=== PATIENT | male | born 1955 | race Caucasian/White ===

== ENCOUNTER 2018-09-27 05:57 | Inpatient (IN) | payer OTHER ==
[~2018-09-27] VITALS: Ht 172.7 cm; Wt 83.9 kg
[2018-09-27] VITALS (10 sets, daily range): BP systolic 140–210; BP diastolic 74–181
--- NOTE | ~2018-09-27 | PR ---
[place], [place] PROGRESS NOTE NAME: CASEY HENRIQUEZ UNIT #: [id number] ROOM: 515 DOCTOR: ALFONZO AUGUSTE MD,SOURAV BIRTHDATE: [birth year] DOS: 09/29/2018 PULMONARY PROGRESS NOTE SUBJECTIVE: The patient has been reported reduction of the respiratory symptoms. Cough has been noted mild at this time without any sputum expectoration. Denies symptoms of chest pain, shortness of breath definitely was decreased. Denies symptoms of hemoptysis or chest pain. There was no edema or pain of the lower extremity. Denies symptoms of headache, diplopia, nausea, vomiting, or diarrhea. The patient had stress testing completed yesterday. Heart rate for the patient has been currently noted with a controlled range between 70-85. Remaining systems were reviewed, they were noted all negative. OBJECTIVE: VITAL SIGNS: Normal temperature, respiratory rate 18, heart rate 70-54, blood pressure 144/62-142/74. The pulse oxygen saturation was recorded on room air 98% saturation. HEENT: Chronic obesity. NECK: Supple. CARDIOVASCULAR: S1, S2 audible. LUNGS: Noted [id number] decreased breath sounds in the lungs bilaterally. There are no wheezes or crackles at the present time. ABDOMEN: Soft, nontender. Bowel sounds present. EXTREMITIES: The patient was noted without any acute edema. MUSCULOSKELETAL: Without any acute deformities. Partially scoliosis of the thoracic spine. VISIBLE SKIN: No lesions or rashes. CENTRAL NERVOUS SYSTEM: Intact. LABORATORY DATA: Gram stain of the sputum ____. The patient's WBC many white blood cells, moderate epithelial cells, moderate gram-positive cocci in pairs and chains and few gram-negative bacilli and budding yeast. Sputum was noted as normal romel. The CBC that was done on 09/29/2018, WBC count 12.7, hemoglobin and hematocrit normal, platelet count was normal. CMP of this morning, BUN of 25, creatinine was normal. Phosphorus of 2.2, which was mildly decreased. The chest x-ray, 1 view, which was ordered by the primary care attending was noted with reduction of previous noted, right upper lung infiltration. IMPRESSION: 1. The patient was currently noted with interstitial pneumonitis with area of consolidation in the lung, which was noted nodule in the right upper lobe. Suspected of acute pneumonia, rule out malignancy with further follow up with the patient. A short term followup CT scan of the chest. 2. Chronic thoracic scoliosis, restrictive lung disease. 3. Atrial fibrillation, currently noted normal heart rate less than 100 and noted well controlled. The results of the stress testing was noted with left ventricle ejection fraction estimated at 48% and the test was reported as abnormal pharmacologic nuclear stress test. The perfusion for the patient was [place], [place] PROGRESS NOTE NAME: CASEY HENRIQUEZ UNIT #: [id number] ROOM: [facility] DOCTOR: SOURAV FALCON MD BIRTHDATE: [birth year] noted normal ____ with the stress. PLAN OF TREATMENT: Continuation of the bronchodilators, oxygen supplementation, antibiotics. Assessed for possible potential discharge home in the morning. Continue current combination of antibiotics. Usual care, other supportive therapy, plan of management and care plan of treatment. Other treatment plan for the patient and changes will be made based on progression of his illness. SOURAV MEJÍA MD CM:PNTRANS [id number] SOURAV AUGUSTE MD 09/29/18 2324 interface
--- NOTE | ~2018-09-27 | CON ---
[place], [place] REPORT OF CONSULTATION NAME: CASEY HENRIQUEZ UNIT #: [id number] ROOM: 515 DOCTOR: ALFONZO AUGUSTE MDSOURAV BIRTHDATE: [birth year] DOS: 09/28/2018 PULMONARY CONSULTATION CONSULTATION REQUESTED BY: Hospitalist services. REASON FOR CONSULTATION: assessment of mass-like infiltration in the right lung. HISTORY OF PRESENT ILLNESS: This 63-year-old white male patient without any known diagnosis of pulmonary disease. The patient presented to the Emergency Room on 09/27/2018. The patient was reporting symptoms of significant increased shortness of breath that occurred when patient woke up with that. Shortness of breath has been noted progressive worsening with minimal exertion. The symptoms did resolve later on. He was complaining of symptoms of tightness in the chest. The patient does have some cough without any sputum expectoration. Denies symptoms of fever, chills or any hemoptysis. Denies symptoms of chest pain with current symptom. REVIEW OF SYSTEMS: The remaining systems were reviewed as well, CONSTITUTIONAL SYMPTOMS: He does report symptoms of fatigue, but there were no symptoms of fever or chills reported. Denies any abnormal weight loss history. EYES: Denies any burning, redness, dizziness, diplopia or discharge. EARS, NOSE, THROAT SYMPTOMS: Denies any earache. The patient has postnasal drainage or epistaxis or facial pain or fullness or tenderness. CARDIOVASCULAR: Denies any angina pain, palpitation, edema of the lower extremities. Chest tightness was reported. The symptoms were not consistent with typical angina pain. GASTROINTESTINAL SYMPTOMS: Denies dysphagia, nausea, vomiting, diarrhea, abdominal pain, hematemesis, melena, hematochezia, abnormal weight loss. GENITOURINARY SYMPTOMS: No dysuria, suprapubic pain, hematuria. CENTRAL NERVOUS SYSTEM: Denies diplopia, syncopal episodes. SKIN: Denies abnormal lesions or rashes. Remaining systems were reviewed. They were noted all negative. PAST MEDICAL HISTORY: History of questionable hypertension in the past. PAST SURGICAL HISTORY: Reported as no major surgeries. SOCIAL HISTORY: The patient is and lives at home. Smoking was started at the age of [age] years old up to 3 packs of cigarettes per day until the age of [age] years old. The patient does drink 2 or 3 or 4 beers over the weekend. FAMILY HISTORY: Reported as father of complications of emphysema. Mother of complication of emphysema and heart disease at age 7070 years old. One of the other brother has been known with history of emphysema and hypertension. HOME MEDICATIONS: Aspirin 325 mg p.o. daily. [place], [place] REPORT OF CONSULTATION NAME: CASEY HENRIQUEZ UNIT #: [id number] ROOM: [facility] DOCTOR: SOURAV FALCON MD BIRTHDATE: [birth year] DRUG ALLERGIES: ALLERGY TO BENADRYL causing swelling of the tongue. PHYSICAL EXAMINATION: GENERAL: This is a 63-year-old white male currently noted awake and alert without any acute distress this morning of assessment. The patient's height was recorded by the nursing staff as 5 feet 8 inches, weight 185 pounds. VITAL SIGNS: His temperature 100.36, patient noted later afebrile, respiratory rate 19-20, heart rate of 178 with atrial fibrillation, rapid ventricular response, new onset, and this morning, heart rate was noted at 80. Blood pressure was recorded on admission 208/181 including noted this morning at 8:00, 158/72. Pulse oxygen saturation recorded at rest on room air 95% saturation. HEENT: Head was atraumatic. Eyes nonicterus. NECK: Supple. CARDIOVASCULAR: S1, S2 is audible. LUNGS: The patient was noted without any wheeze or crackles at the present time. ABDOMEN: Soft, nontender, bowel sounds present. EXTREMITIES: The patient was noted without any acute edema, clubbing or cyanosis. CENTRAL NERVOUS SYSTEM: Cranial nerves 2-12 intact. MUSCULOSKELETAL: Without any acute deformity. VISIBLE SKIN: Without lesions or rashes. LABORATORY DATA: Reviewed for this consultation today. CBC on admission yesterday, WBC count 14.6, hemoglobin and hematocrit normal, platelet count were normal with 0.5% eosinophils. The PT, PTT on 09/27/2018 was normal. CMP that was done on admission, BUN 30, creatinine was normal, glucose 129. LFTs, AST 43. The troponin minimally elevated 0.025. Second set was 0.213. The third set of 0.186. The CBC this morning, WBC count 7.8, remaining CBC was normal. The CMP of the patient this morning, BUN 27, creatinine normal, glucose was normal. Other electrolytes were normal except phosphorus, mildly decreased at 2.0. The chest x-ray that was done on admission was noted with evidence of changes of scoliosis for this patient with distortion of the spine towards the right. Heart size cannot be completely and clearly assessed. There was no previous chest x-ray noted for comparison of the current findings. Patchy infiltration, the patient was suspected in the right upper lobe. CT scan of the chest that was done without contrast was reviewed, shows an evidence of large area of interstitial infiltration was noted in the right upper lung with the central portion with consolidation area and nodular formation noted scattered in the lung. The area of involvement noted quite large. Small interstitial infiltration noted in the right middle lobe as well. The remaining lungs were noted clear of any acute infiltration. ASSESSMENT: The patient will be noted suboptimal because of lack of the IV contrast. However, ____ shows evidence of mild lymphadenopathy was noted in the precarinal area if there is any right hilar lymphadenopathy present cannot be assessed because of lack of the contrast. IMPRESSION: 1. The patient will be currently admitted to the hospital noted with severely [place], [place] REPORT OF CONSULTATION NAME: CASEY HENRIQUEZ UNIT #: [id number] ROOM: [facility] DOCTOR: ALFONZO AUGUSTE MD,[facility] BIRTHDATE: [birth year] uncontrolled hypertension, new onset of atrial fibrillation, current pulmonary abnormalities suggest a possibility of acute pneumonia at the present time, the viral or bacterial origin as the first consideration. 2. Distortion of the chest noted with scoliosis of the spine with restrictive lung disease, very likely. 3. History of short term tobacco use for few years in the teens and later on, but the patient did not continue to smoke cigarettes. There was no past diagnosis of COPD or bronchial asthma. Current findings were not noted consistent with any acute exacerbation of chronic obstructive pulmonary disease, bronchial asthma. The nodular infiltration would be considered with a differential of viral, bacterial in origin. Malignancy for this patient remains in consideration until the resolution occur with the followup CT scan of the chest in future. PLAN OF MANAGEMENT: The patient has been already ____ for the management of the current acute atrial fibrillation with rapid ventricular response. Heart rate was noted, control range. Bronchodilator would be changed to q.i.d. instead of q.4h, is not needed. Otherwise, continue bronchus, rather nebulized bronchodilator treatment. The patient has been getting only intermittent Rocephin, which should cover the atypical organism but the coverage will be noted suboptimal, doxycycline for the patient will be continued. In addition, the patient will be started on the intravenous Rocephin 2 grams daily dose. Other medical management and plan of care to be continued. The workup for the typical organism will be continued. Other workup, nodular infiltration of noninfectious etiology including limited workup for connective tissue disorder, vasculitis and other will be resumed. The patient may be considered for fiberoptic bronchoscopy if necessary to get more accurate culture assessment. Thank you for allowing me to participate in the care of this patient. SOURAV MEJÍA MD CM:CONSTR:REPORT OF CONSULTATION 1311 09/29/18 0042 interface
--- NOTE | ~2018-09-27 | PR ---
[place], [place] PROGRESS NOTE NAME: CASEY HENRIQUEZ UNIT #: [id number] ROOM: 515 DOCTOR: ALFONZO AUGUSTE MD,SOURAV BIRTHDATE: [birth year] DOS: 09/30/2018 SUBJECTIVE: The patient remains comfortable at this time without any acute distress. Coughing has improved. Shortness of breath was noted improving. There were no symptoms of chest pain, fever or chills. From the cardiac standpoint the patient also doing very well at this time with controlled heart rate as well. OBJECTIVE: VITAL SIGNS: Normal temperature, respiratory rate 18, heart rate 82, blood pressure 182/92. HEAD, EYES, EARS, NOSE, AND THROAT: Examination shows head was atraumatic. Eyes nonicterus. NECK: Supple. CARDIOVASCULAR SYSTEM: S1, S2 is audible. LUNGS: Noted without any wheeze or crackle at the present time. ABDOMEN: Soft, nontender. Bowel sounds present. EXTREMITIES: No acute edema. LABORATORY DATA: Culture of the sputum noted light growth of gram-negative bacilli. IMPRESSION: Resolving acute pneumonia, gram-negative infection. CBC noted normal WBC count. PLAN OF TREATMENT: Discharge planning could be started the patient on oral Levaquin or similar medication use for patient possibly before discharge. The culture will be monitored with an addition of changes in medical management to be done accordingly. SOURAV MEJÍA MD CM:PNTRANS [id number] [id number] SOURAV AUGUSTE MD 09/30/18 1526 interface
--- NOTE | ~2018-09-27 | EKG ---
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
--- NOTE | ~2018-09-27 | CON ---
[place], [place] REPORT OF CONSULTATION NAME: CASEY HENRIQUEZ UNIT #: [id number] ROOM: 515 DOCTOR: DEDRICK PATEL MD BIRTHDATE: [birth year] DOS: 09/27/2018 CARDIOLOGY CONSULTATION REASON FOR CONSULTATION: Newly documented atrial fibrillation. HISTORY: The patient is a 63-year-old man who has no previously documented heart disease. He was told several years ago that his blood pressure was somewhat high, but it was never treated. He does not see physicians very often and he believes that his last physical was around in 2013. He was in his normal state of health until about 6 weeks ago. He began having a cough productive of clear to brown sputum. It would wax and wane, but persisted. About 6 days ago, his symptoms became worse. He also noticed increased fatigue intermittently over the last several weeks. This morning, he did have chills and coughed up reddish sputum. He also had a fever this morning. He became concerned and came to the Emergency Room. He was found to be in atrial fibrillation with a rapid ventricular response of about 178 beats per minute. In addition, his blood pressure was severely elevated at 210/120. He was febrile with a temperature of 100.3. A chest x-ray did show a right upper lobe infiltrate and this was confirmed by CAT scan. He was therefore admitted and placed on a diltiazem drip for blood pressure and heart rate control and Cardiology was asked to assist in his assessment. The patient has had some anterior chest heaviness, but mostly complains of cough and dyspnea as well as fatigue. PAST MEDICAL HISTORY: Includes: 1. Possible elevated blood pressure in the . The patient was not treated. 2. No history of heart attack, stroke, diabetes or renal disease. 3. History of scoliosis. MEDICATIONS PRIOR TO ADMISSION: The patient takes a daily aspirin. ALLERGIES: The patient states he has had allergic reaction to BENADRYL. REVIEW OF SYSTEMS: The patient denies diplopia or loss of vision. He denies lightheadedness or syncope. He has had increased dyspnea and fatigue lately. He denies nausea or vomiting. He has had a cough and has had some hemoptysis this morning. He denies focal weakness. He denies any recent weight change. He has not had hematemesis. He denies any change in bowel or bladder habits and denies blood in his stools or urine. He denies any skin rashes. He denies any peripheral edema. He denies any heat or cold intolerance. He has had occasional chills lately and his thinks he was feverish this morning. He denies polyuria or polydipsia. The remainder of the review of systems is negative except as noted above. FAMILY HISTORY: The patient's mother and father both had obstructive lung disease. A brother has elevated blood pressure and obstructive lung disease. A sister of complications of diabetes. His brother at age 30 from an apparent cerebral hemorrhage. [place], [place] REPORT OF CONSULTATION NAME: CASEY HENRIQUEZ UNIT #: [id number] ROOM: [facility] DOCTOR: DEDRICK PATEL MD BIRTHDATE: [birth year] SOCIAL HISTORY: The patient is and lives with his . He smoked as a teenager, but quit in his mid 20s and has not smoked since then. He drinks a couple of beers on the weekend. 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 PHYSICAL EXAMINATION: GENERAL: The patient is well-nourished white male who is awake, alert and oriented. VITAL SIGNS: Pulse is 74 and irregularly irregular. Blood pressure is 140/74. He is currently afebrile with a temperature of 98.1. He weighs 83.9 kg and has a body mass index of 28.1. HEENT: Normocephalic and atraumatic. Extraocular muscles are intact. Sclerae are clear. Pupils equal, round and react to light. The oral mucosa is moist. Tongue is midline. NECK: Supple. He has no jugular distention. Carotids are full. There are no bruits. He has no neck or supraclavicular masses and no thyromegaly. LUNGS: Respirations are unlabored at rest. He has decreased breath sounds over the right upper lung. He has no dullness or rales at the bases. There are no wheezes. He does have a scoliosis with convexity to the left. He has no presacral edema or chest wall tenderness. CARDIOVASCULAR: His heart has an irregularly irregular rhythm without murmurs or gallops. The PMI is not displaced. He has no precordial heave, lift or thrill. ABDOMEN: Soft and normally active without masses, organomegaly or bruits. EXTREMITIES: Showed no edema. Peripheral pulses are palpable in the feet. DIAGNOSTIC AND LABORATORY DATA: I reviewed his electrocardiogram, which showed atrial fibrillation. Heart rate response was controlled. He does have inferolateral T-wave inversions and increased voltage consistent with left ventricular hypertrophy and secondary ST and T-wave changes. Serial troponin levels have been minimally elevated at 0.205, 0.213 and 0.186. Sodium is 139, potassium 4.0, BUN 30, creatinine 1.28. Hemoglobin is 16.7, white count 14,600, platelet count 211,000. IMPRESSION: 1. Newly documented atrial fibrillation with rapid ventricular response. 2. Mild elevation in troponin, most likely due to demand ischemia from rapid atrial fibrillation and hypertension. 3. Newly documented hypertension. It is likely that the patient has had significant hypertension for some time given the appearance of his EKG. 4. Right upper lobe pneumonia. 5. [id number] score equals 1 consistent with an increased risk of stroke about 1-2% per year without anticoagulation. PLAN: I did discuss atrial fibrillation and its management with the patient. I agree with aggressive efforts to control his blood pressure and heart rate. Given the fact that he has had symptoms recently, we probably will want to consider a cardioversion, but I would wait until after his pneumonia has been cleared. As noted, it is not clear how this may have contributed to his newly [place], [place] REPORT OF CONSULTATION NAME: CASEY HENRIQUEZ UNIT #: [id number] ROOM: [facility] DOCTOR: DEDRICK PATEL MD BIRTHDATE: [birth year] documented atrial fibrillation. I agree with the use of a direct oral anticoagulant for stroke prophylaxis. For now, we will try to control his rate with diltiazem and try to switch him over to a beta kaylee or oral diltiazem over the next few days, especially if he does not convert to sinus rhythm spontaneously. To evaluate him further, we will be getting a TSH along with an echocardiogram and a pharmacologic stress test. I thank the hospitalist physicians for asking our advice regarding his care. DEDRICK PATEL MD CM:CONSTR:REPORT OF CONSULTATION 1656 09/28/18 0724 interface
--- NOTE | ~2018-09-27 | EKG ---
[place], [place] ELECTROCARDIOGRAM REPORT NAME: CASEY HENRIQUEZ UNIT #: [id number] ROOM: 515 DOCTOR: GYPSY DRAFT REPORT BIRTHDATE: [address] 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
--- NOTE | ~2018-09-27 | EKG ---
[place], [place] ELECTROCARDIOGRAM REPORT NAME: CASEY HENRIQUEZ UNIT #: [id number] ROOM: 515 DOCTOR: GYPSY DRAFT REPORT BIRTHDATE: [birth year] [facility] Test Date: 2018-09-27 Test Time: 12:05:32 Pat Name: CASEY HENRIQUEZ Department: Room: [facility] Gender: M [employer] Supervisor: Tracie Ghotra : 1955 Requested By: HILARY MUÑOZ Order Number: [id number] Reading MD: Vu Ferrara MD Measurements Intervals [place] Rate: 82 P: [place]: QRS: 40 QRSD: 93 T: 215 QT: 391 QTc: 457 Interpretive Statements Atrial fibrillation Probable LVH with secondary repol abnrm Baseline wander in lead(s) V1 No change from earlier ECG this date Electronically Signed On 09-27-2018 15:37:02 PST by Vu Ferrara MD CM:EKGRPT:ELECTROCARDIOGRAM REPORT 1205 [id number] HILARY RICO DRAFT REPORT HILARY MUÑOZ DO
--- NOTE | ~2018-09-27 | PROC NOTE ---
[place], [place] PROCEDURE NOTE NAME: CASEY HENRIQUEZ UNIT #: [id number] ROOM: [facility] DOCTOR: SONIDO STRATTON BIRTHDATE: [birth year] DOS: 09/29/2018 MODIFIED BARIUM SWALLOW LOCATION: [facility]. ROOM: [facility], bed 2. ORDERING PHYSICIAN: Dr. Pineda. RADIOLOGIST: Dr. Kahn. BACKGROUND INFORMATION: The patient is a 63-year-old male who was seen for a modified barium swallow. This test was ordered to rule out aspiration. The patient is diagnosed with pneumonia. Further medical history includes hypertensive urgency and new onset of atrial fibrillation. The patient was alert and cooperative throughout the evaluation. He currently receives a regular diet and thin liquids. Oral peripheral examination revealed presence of natural teeth with several missing. Lingual, labial, and buccal skills were within normal limits in terms of strength, range of motion, and coordination. The patient was able to volitionally cough and swallow. METHODS AND MATERIALS USED FOR THE EXAM: The patient was positioned in the lateral plane and the exam was viewed under fluoroscopy. The patient was presented with a variety of consistencies to assess swallowing skills including applesauce mixed with barium presented in half teaspoon amounts, barium-coated sandwich taken in bite size piece and thin liquid barium taken by cup and straw. The patient took single and larger consecutive sips with liquids. ORAL PHASE: Unremarkable. PHARYNGEAL PHASE: Unremarkable. ESOPHAGEAL PHASE: This phase of the swallow was not formally assessed during this exam. IMPRESSIONS AND RECOMMENDATIONS: Based upon assessment results, this 63-year-old patient presents with oral and pharyngeal swallowing skills that are within normal limits. Recommend he remain on present diet. No followup treatment is warranted. Results and recommendations were shared with the patient and his nurse and they verbalized understanding. Thank you very much for this referral. Should you have any questions regarding this patient, please contact the speech pathologist at [phone]. [place], [place] PROCEDURE NOTE NAME: CASEY HENRIQUEZ UNIT #: [id number] ROOM: [facility] DOCTOR: SONIDO STRATTON BIRTHDATE: [birth year] SONIDO STRATTON CM:PROCNOTE:PROCEDURE NOTE 1436 [id number] DONNA PEREZ
[2018-09-27] MEDS ORDERED: ASPIRIN325 M2 PO (06:04)
[2018-09-27 06:48] LABS: BASO % 0.3 % (0.0-1.0); EOS # 0.1 10*3/uL (0.0-0.4); EOS % 0.5 % (1.0-4.0); HEMATOCRIT 47.6 % (42.0-52.0); HEMOGLOBIN 16.7 g/dl (14.0-18.0); LYMPH # 1.2 10*3/uL (1.3-4.4); MEAN CELL VOLUME 93.2 fl (80.0-94.0); MEAN CORPUSCULAR HGB 32.7 pg (27.0-31.0); MEAN CORPUSCULAR HGB CONC 35.1 g/dl (33.0-37.0); MEAN PLATELET VOLUME 10.2 fl (9.6-12.3); MONO % 7.1 % (3.0-9.0); NEUT # 12.2 10*3/uL (2.3-7.9); NEUT % 83.6 % (47.0-73.0); PLATELET COUNT AUTOMATED 211 10*3/uL (130-400); RED BLOOD COUNT 5.11 10*6/uL (4.50-5.90); RED CELL DISTRI WIDTH 13.3 % (0-14.5); WHITE BLOOD COUNT 14.6 10*3/uL (4.8-10.8)
[2018-09-27 06:57] LABS: ACT PARTIAL THROMBO TIME 24.4 SECONDS (20.8-31.5)
[2018-09-27 07:09] LABS: ALBUMIN 3.5 gm/dl (3.1-4.5); ALKALINE PHOSPHATASE 81 U/L (45-117); BUN 30 mg/dl (7-24); CHLORIDE 105 mmol/L (98-107); CREATININE 1.28 mg/dL (0.70-1.30); SGOT/AST 43 IU/L (3-35); SGPT/ALT 62 U/L (12-78); SODIUM 139 mmol/L (136-145); TOTAL PROTEIN 7.3 gm/dL (6.4-8.2)
[2018-09-27 07:11] LABS: TROPONIN I 0.205 ng/ml (<0.045)
--- NOTE | 2018-09-27 07:12 | NUR ---
troponin 0.025 dr maddox notified
--- NOTE | 2018-09-27 08:20 | NUR ---
A 63, admitted to 5E, under the services of DONNA Low DO with a diagnosis of Hypertensive Emergency. Chief complaint is Cough, suptum. Patient arrived via stretcher from ER. Monitor applied. Initial assessment completed. Vital signs taken and recorded. DONNA LOW DO notified of admission to the unit. Orders received. See assessment for past medical history, medications and allergies. Patient and/or family oriented to unit. [address] visitation policy reviewed. Patient states he does not take Aspirin on a regular basis. He also states he take an unknown dose occasionally of potassium for leg cramps. Clothing/patient valuable form completed. PAWAN HINKLE
--- NOTE | 2018-09-27 09:42 | NUR ---
Message left with Dr. Ferrara's answering service regarding new consult for elevated troponin and new onset A-fib.
--- NOTE | 2018-09-27 09:49 | NUR ---
Dr. Ferrara called back regarding consult. We went over patient history and medications. No new orders. Will follow up at patients bedside.
--- NOTE | 2018-09-27 10:00 | NUR ---
Notified Dr. Barrientos of elevated troponin and that patients heart rate increased up to 150 with ambulation to the bathroom.
--- NOTE | 2018-09-27 10:10 | NUR ---
Notified Dr. Barrientos of patients elevated blood pressure. Dr. Burkett at patients bedside immediately.
--- NOTE | 2018-09-27 10:30 | NUR ---
Spoke with Dr. Ferrara regarding patients elevated blood pressure and that Dr. Burkett was going to start a cardizem drip. Per Dr. Burkett if Dr. Ferrara wanted any changes to let her know. Per Dr. Ferrara he would like patient to receive a bolus of 10-15mg of Cardizem and then the drip. Message was then relayed to Dr. Barrientos. see new orders.
--- NOTE | 2018-09-27 10:40 | NUR ---
Notified Dr. Ferrara of elevated troponin level.
--- NOTE | 2018-09-27 12:56 | NUR ---
Rounding done with physicians. Dr. Barrientos notified of troponin level.
--- NOTE | 2018-09-27 14:12 | NUR ---
Notified Dr. Barrientos that patients heart rate remained 84-94 with ambulation and patient remained asymptomatic. Cardizem drip was titrated to 5mg/hr. Will continue to monitor.
--- NOTE | 2018-09-27 15:46 | NUR ---
Contacted Dr. Martin regarding consult for RUL PNA vs mass. No new orders, physician to follow up at bedside.
--- NOTE | 2018-09-27 18:15 | NUR ---
Called Dr. Ferrara to see if he wanted the Cardizem drip continued. He said "yes, lets keep him on it throught tonight because his heart rate was intermittenly in the low 100's and he is still in A-fib.
--- NOTE | 2018-09-27 18:23 | NUR ---
Relayed the message to Dr. Barrientos regarding conversation with Dr. Ferrara that he does want the patient to remain on the cardizem drip throught this evening. Per Dr. Barrientos, 5mg/hr is fine as long as patients heart rate remains under 120 beats per min.
[2018-09-28] VITALS: BP 132/100
[2018-09-28 07:22] LABS: ALBUMIN 3.4 gm/dl (3.1-4.5); ALKALINE PHOSPHATASE 67 U/L (45-117); BUN 27 mg/dl (7-24); CHLORIDE 109 mmol/L (98-107); CHOLESTEROL 141 mg/dL (<200); CREATININE 1.17 mg/dL (0.70-1.30); HDL CHOLESTEROL 50 mg/dl (40-60); LDL CHOLESTEROL 76 mg/dL (9-159); POTASSIUM 3.9 mmol/L (3.5-5.1); SGOT/AST 29 IU/L (3-35); SGPT/ALT 45 U/L (12-78); SODIUM 141 mmol/L (136-145); TOTAL PROTEIN 7.1 gm/dL (6.4-8.2); TRIGLYCERIDES 77 mg/dl (<150); VLDL CHOLESTEROL 15 mg/dL (6-40)
[2018-09-28 07:24] LABS: BASO % 0.3 % (0.0-1.0); EOS # 0.1 10*3/uL (0.0-0.4); EOS % 0.5 % (1.0-4.0); HEMATOCRIT 44.3 % (42.0-52.0); HEMOGLOBIN 15.1 g/dl (14.0-18.0); LYMPH # 1.9 10*3/uL (1.3-4.4); LYMPH % 16.2 % (27.0-41.0); MEAN CELL VOLUME 95.9 fl (80.0-94.0); MEAN CORPUSCULAR HGB 32.7 pg (27.0-31.0); MEAN CORPUSCULAR HGB CONC 34.1 g/dl (33.0-37.0); MEAN PLATELET VOLUME 10.4 fl (9.6-12.3); MONO # 1.1 10*3/uL (0.1-1.0); MONO % 9.3 % (3.0-9.0); NEUT # 8.7 10*3/uL (2.3-7.9); NEUT % 73.3 % (47.0-73.0); PLATELET COUNT AUTOMATED 176 10*3/uL (130-400); RED BLOOD COUNT 4.62 10*6/uL (4.50-5.90); RED CELL DISTRI WIDTH 13.9 % (0-14.5); WHITE BLOOD COUNT 11.8 10*3/uL (4.8-10.8)
[2018-09-28 08:00] VITALS: BP 158/72
--- NOTE | 2018-09-28 08:00 | NUR ---
VITALS STABLE, BP 158/72 WILL CONTINUE TO MONITOR, ASHWIN, HEART SOUNDS STRONG, A-FIB WITH RATE OF 72 PER CARDIAC STRIP, LUNG SOUNDS DIMINISHED THROUGHOUT, NO EDEMA NOTED, EQUAL CLOTHES SHAKER, POSITIVE PEDAL PULSES, CAP REFILL <3 SECONDS, SKIN INTACT, WARM AND DRY, BOWEL SOUNDS ACTIVE X4, ABDOMEN SOFT , NONTENDER, NONDISTENDED. BERNABE RODRIGUEZ SP[facility]
--- NOTE | 2018-09-28 08:05 | NUR ---
IV site in R/AC infiltrated. Per patient it was easier to deal with the pain of this then getting another one put in. Student nurse to obtain additional site due to Cardizem drip running.
[2018-09-28 08:06] LABS: VITAMIN D, 25-HYDROXY 17.6 ng/mL (30-100)
--- NOTE | 2018-09-28 08:35 | NUR ---
DR. MEJÍA IN TO SEE PATIENT. PATIENT TRANSPORTED BY WHEELCHAIR FOR STRESS TEST. PATIENT CONDITION STABLE AT TIME OF DEPARTURE. BERNABE RODRIGUEZ SPWAQASCC
--- NOTE | 2018-09-28 09:59 | NUR ---
INFORMED CONSENT SIGNED FOR LEXISCAN STRESS TEST WITH DR. RICHARDSON. RESTING EKG A-FIB, HR 81, BP 130/80. PULSE OX 96% AND LUNGS CLEAR. COMPLETED ONE MINUTE OF LEXISCAN PROTOCOL RECEIVING LEXISCAN 0.4MG OVER 10 SECONDS. NO ARRHYTHMIAS OR ST CHANGES NOTED. PT C/O SOB AND DIZZINESS. LAST RECOVERY HR 97, BP 140/78. WAITING NUCLEAR SCANNING IN STABLE CONDITION.
--- NOTE | 2018-09-28 11:30 | NUR ---
PATIENT RETURNED TO FLOOR FROM CARDIAC BY WHEELCHAIR CONDITION STABLE. BERNABE MCELROYCC
[2018-09-28 12:00] VITALS: BP 132/70
--- NOTE | 2018-09-28 12:00 | NUR ---
CARDIAZEM PO GIVEN AT 11:48 AM. BHARATI MIRANDA DC OF NOW. BERNABE RODRIGUEZ SPWAQASCC
--- NOTE | 2018-09-28 14:59 | NUR ---
It Help Desk Associate in to talk to patient. Patient states lives at HOME with . There are NO steps in the home. Physician: NO FAMILY PHYSICIAN, PT STATES HE HAS A LIST [facility]acy: [facility] Home health services: NONE Patient's level of ADLs: INDEPENDENT Patient has working utilities: YES DME: NONE Follow-up physician's appointment after d/c: WILL PICK FROM LIST AND MAKE APPOINTMENT Does patient want to access PORTAL?: NO Discharge plan PT STATES HE LIVES AT HOME WITH HIS AND IS INDEPDENT IN CARE. STATES NO NEEDS AT DISCHARGE. TO TAKE PT HOME. WILL CONTINUE TO FOLLOW.. CRISTINO LAZAR
[2018-09-28 16:00] VITALS: BP 171/91
[2018-09-28 18:19] VITALS: BP 182/110
--- NOTE | 2018-09-28 18:22 | NUR ---
Called regarding patients elevated blood pressure, physician unavailable.
--- NOTE | 2018-09-28 18:25 | NUR ---
Contacted Dr. Khan regarding patients elevated blood pressure. Awaiting new orders.
--- NOTE | 2018-09-28 18:52 | NUR ---
Hydarlazine and lisinopril given. Will reassess blood pressure. Patient shows no signs of diestress.
[2018-09-28 20:00] VITALS: BP 168/82; BP 171/90
--- NOTE | 2018-09-28 20:05 | NUR ---
24 HR chart check completed.
--- NOTE | 2018-09-28 21:00 | NUR ---
SLEEPING, AWAKENS EASILY. RESPIRATIONS EASY. LUNGS DIMINISHED WITH EXP WHEEZES. PULSE OX 97% RA, O2 PRESENT AT BEDSIDE FOR PRN USE. TRACE BLE EDEMA; OFFERED AND EDUCATED REGARDING TEDS, DECLINED STATING "I DON'T NEED THEM." CALL LIGHT WITHIN REACH. NO VOICED COMPLAINTS.
[2018-09-29] VITALS: BP 145/79
--- NOTE | 2018-09-29 | NUR ---
SLEEPING. NO DISTRESS NOTED. RESPIRATIONS EASY. VSS. CALL LIGHT WITHIN REACH
--- NOTE | 2018-09-29 06:00 | NUR ---
SLEPT THROUGHOUT NIGHT WITH NO DISTRESS NOTED. RESPIRATIONS EASY. CALL LIGHT WITHIN REACH. NO VOICED COMPLAINTS THIS SHIFT
[2018-09-29 06:22] LABS: BASO % 0.2 % (0.0-1.0); EOS # 0.1 10*3/uL (0.0-0.4); EOS % 0.7 % (1.0-4.0); HEMATOCRIT 44.2 % (42.0-52.0); HEMOGLOBIN 14.6 g/dl (14.0-18.0); LYMPH # 2.8 10*3/uL (1.3-4.4); LYMPH % 22.4 % (27.0-41.0); MEAN CELL VOLUME 96.9 fl (80.0-94.0); MEAN PLATELET VOLUME 10.2 fl (9.6-12.3); MONO # 1.4 10*3/uL (0.1-1.0); MONO % 11.4 % (3.0-9.0); NEUT # 8.3 10*3/uL (2.3-7.9); NEUT % 65.1 % (47.0-73.0); PLATELET COUNT AUTOMATED 186 10*3/uL (130-400); RED BLOOD COUNT 4.56 10*6/uL (4.50-5.90); RED CELL DISTRI WIDTH 13.8 % (0-14.5); WHITE BLOOD COUNT 12.7 10*3/uL (4.8-10.8)
[2018-09-29 06:27] LABS: ALBUMIN 3.3 gm/dl (3.1-4.5); ALKALINE PHOSPHATASE 71 U/L (45-117); BUN 25 mg/dl (7-24); CHLORIDE 111 mmol/L (98-107); CREATININE 1.14 mg/dL (0.70-1.30); PHOSPHOROUS 2.2 mg/dL (2.5-4.9); POTASSIUM 4.2 mmol/L (3.5-5.1); SGOT/AST 30 IU/L (3-35); SGPT/ALT 45 U/L (12-78); SODIUM 140 mmol/L (136-145); TOTAL PROTEIN 7.1 gm/dL (6.4-8.2)
[2018-09-29 08:00] VITALS: BP 142/74
--- NOTE | 2018-09-29 08:02 | NUR ---
VITALS STABLE. 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 BERNABE RODRIGUEZ WAQASCC
[2018-09-29 10:09] LABS: IMMUNOGLOBULIN M, QNT 91 mg/dL (20-172)
--- NOTE | 2018-09-29 11:35 | NUR ---
PT CONTINUES TO DENY HOME NEEDS ON DISCHARGE. WILL CONTINUE TO FOLLOW.
[2018-09-29 12:00] VITALS: BP 144/62
--- NOTE | 2018-09-29 12:00 | NUR ---
REASSESSED PATIENT AND HE IS RESTING QUIETLY IN BED. NO CONCERNS ADDRESSED BY PATIENT DURING ASSESSMENT. BERNABE RODRIGUEZ [facility]
--- NOTE | 2018-09-29 12:57 | NUR ---
Spoke with Dr. Aj regarding the dose changes of Cardizem. I explained that the student nurses gave the 60mg dose of Cardizem at 1134 and the new order was written at 1223 with a dose of 120mg Cardizem to be given at 1225. I wanted to clarify if the 120mg dose should still be given. Dr. Aj to see Dr. Pierre face to face and will clarify and call me on my direct phone.
--- NOTE | 2018-09-29 13:45 | NUR ---
PATIENT TRANSPORTED TO X-RAY VIA WHEELCHAIR. PATIENT STABLE. BERNABE MCELROYCC
--- NOTE | 2018-09-29 13:55 | NUR ---
Dr. Aj clarified dose of 240mg Cardizem to be given 6 hrs after 60mg dose was given.
[2018-09-29 14:10] LABS: ALDOLASE 002030 6.9 U/L (3.3-10.3); ANGIOTENSIN-CONVERTING ENZYME 44 U/L (14-82)
--- NOTE | 2018-09-29 14:27 | NUR ---
SPEECH PATHOLOGY Modified barium swallow completed as per orders to r/o aspiration. Patient is diagnosed with pneumonia. Further medical history includes hypertensive urgency and new onset A-fib. Patient was alert and cooperative. He was assessed with puree, solid and thin liquid by cup and straw. Results revealed oral and pharyngeal swallowing skills WNL. Recommend he remain on present diet. No follow up treatment is warranted. Results and norman. were shared with patient and his nurse and they verbalized understanding. Dictated report to follow. Thank you for this referral. SONIDO STRATTON MSCCC-TEST AND BALANCE ENGINEER
--- NOTE | 2018-09-29 14:30 | NUR ---
Per speach therapy patient "did fine, no problems."
[2018-09-29 15:06] LABS: IGG SUBCLASS 1 447 mg/dL (248-810); IGG SUBCLASS 2 349 mg/dL (130-555); IGG SUBCLASS 3 45 mg/dL (15-102); IGG SUBCLASS 4 31 mg/dL (2-96); IMMUNOGLOBULIN G, QNT 894 mg/dL (700-1600)
[2018-09-29 16:00] VITALS: BP 138/86
[2018-09-29 17:09] LABS: ATYPICAL PANCA <1:20 titer (Neg:<1:20); CYTOPLASMIC (C-ANCA) <1:20 titer (Neg:<1:20)
[2018-09-29 20:00] VITALS: BP 145/94
[2018-09-30] VITALS: BP 152/94
[2018-09-30 04:00] VITALS: BP 144/88
--- NOTE | 2018-09-30 05:00 | NUR ---
Dr. Saeed notified of elevated B/P. 0400 B/P 144/88 M. Will continue to monitor.
[2018-09-30 07:09] LABS: BASO % 0.2 % (0.0-1.0); EOS # 0.2 10*3/uL (0.0-0.4); EOS % 1.6 % (1.0-4.0); HEMATOCRIT 41.3 % (42.0-52.0); HEMOGLOBIN 13.7 g/dl (14.0-18.0); LYMPH % 20.7 % (27.0-41.0); MEAN CELL VOLUME 95.4 fl (80.0-94.0); MEAN CORPUSCULAR HGB 31.6 pg (27.0-31.0); MEAN CORPUSCULAR HGB CONC 33.2 g/dl (33.0-37.0); MONO % 10.3 % (3.0-9.0); NEUT # 6.4 10*3/uL (2.3-7.9); NEUT % 66.8 % (47.0-73.0); PLATELET COUNT AUTOMATED 175 10*3/uL (130-400); RED BLOOD COUNT 4.33 10*6/uL (4.50-5.90); RED CELL DISTRI WIDTH 13.4 % (0-14.5); WHITE BLOOD COUNT 9.6 10*3/uL (4.8-10.8)
[2018-09-30 07:16] LABS: BUN 22 mg/dl (7-24); CHLORIDE 109 mmol/L (98-107); CREATININE 0.98 mg/dL (0.70-1.30); PHOSPHOROUS 2.2 mg/dL (2.5-4.9); POTASSIUM 3.9 mmol/L (3.5-5.1); SODIUM 140 mmol/L (136-145)
[2018-09-30 08:00] VITALS: BP 148/82
--- NOTE | 2018-09-30 11:38 | NUR ---
PT CONTINUE TO DENY HOME NEEDS ON DISCHARGE. WILL CONTINUE TO FOLLOW.
[2018-09-30 12:00] VITALS: BP 160/102
[2018-09-30] MEDS ORDERED: AMINOPHYLLIN200 MG PO (15:25)
[2018-09-30] MEDS ORDERED: LOPRESSOR25 MG PO (15:25)
[2018-09-30] MEDS ORDERED: PRINIVIL10 MG PO (15:25)
[2018-09-30] MEDS ORDERED: VIBRAMYCIN100 MG PO (15:25)
[2018-09-30] MEDS ORDERED: XARE20MG PO (15:25)
[2018-09-30] MEDS ORDERED: VITAMIN D32000 UNI1 PO (15:25)
[2018-09-30] MEDS ORDERED: DILTIAZEM HCL240 M1 PO (15:25)
--- NOTE | 2018-09-30 16:05 | NUR ---
Discharge instructions reviewed with patient/family. Patient receptive and verbalizes understanding. Follow-up care arranged. Written instructions given to patient/family. FLORENCIO TAN
[2018-10-01 00:08] LABS: IMMUNOGLOBULIN IgE 002170 49 IU/mL (0-100)
[2018-10-01 02:06] LABS: ADENOVIRUS Negative (Negative); INFLUENZA A Negative (Negative); INFLUENZA B Negative (Negative); METAPNEUMOVIRUS Negative (Negative); PARAINFLUENZA 1 Negative (Negative); PARAINFLUENZA 2 Negative (Negative); PARAINFLUENZA 3 Negative (Negative); RHINOVIRUS Negative (Negative); RSV A Negative (Negative); RSV B Negative (Negative)
== END 2018-09-30 16:40 | disposition home or self-care (01) | DRG 871 ==
LOC: ED 05:57 → EDHOLD 07:15 → 5E 07:15
PROVIDERS: Emergency Medicine; Internal Medicine Critical Care Medicine; Internal Medicine Nephrology; Student in an Organized Health Care Education/Training Program; ADMIT Internal Medicine
PROC: 4A02XM4 Measurement of Cardiac Total Activity, External Approach (ICD-10-PCS; principal; 2018-09-28)
PROC: 3E073KZ Introduction of Other Diagnostic Substance into Coronary Artery, Percutaneous Approach (ICD-10-PCS; principal; 2018-09-28)
PROC: BD1BYZZ Fluoroscopy of Mouth/Oropharynx using Other Contrast (ICD-10-PCS; 2018-09-29)
DX: A41.9 Sepsis, unspecified organism (principal); J69.0 Pneumonitis due to inhalation of food and vomit; I24.8 Other forms of acute ischemic heart disease; I16.1 Hypertensive emergency; Q67.8 Other congenital deformities of chest; I48.91 Unspecified atrial fibrillation; R74.8 Abnormal levels of other serum enzymes; I10 Essential (primary) hypertension; M41.84 Other forms of scoliosis, thoracic region; D72.9 Disorder of white blood cells, unspecified; D72.810 Lymphocytopenia; R74.0 Nonspecific elevation of levels of transaminase and lactic acid dehydrogenase [LDH]; E83.39 Other disorders of phosphorus metabolism; Z88.8 Allergy status to other drugs, medicaments and biological substances; Z87.891 Personal history of nicotine dependence; Z82.5 Family history of asthma and other chronic lower respiratory diseases; Z82.3 Family history of stroke; Z82.49 Family history of ischemic heart disease and other diseases of the circulatory system; Z79.82 Long term (current) use of aspirin

== ENCOUNTER 2018-10-22 12:08 | Emergency (ER) | payer OTHER ==
[~2018-10-22] VITALS: Ht 172.7 cm; Wt 86.2 kg
--- NOTE | ~2018-10-22 | EKG ---
[place], [place] ELECTROCARDIOGRAM REPORT NAME: CASEY HENRIQUEZ UNIT #: [id number] ROOM: DOCTOR: GYPSY DRAFT REPORT BIRTHDATE: [birth year] [facility] Test Date: 2018-10-22 Test Time: 12:24:21 Pat Name: CASEY HENRIQUEZ Department: Room: Gender: Drug Abuse Counselor: ROLANDO : 1955 Requested By: JELLY CARDENAS Order Number: [id number] Reading MD: Faisal Denise MD Measurements Intervals [place] Rate: 75 P: [place]: QRS: 75 QRSD: 112 T: 261 QT: 383 QTc: 428 Interpretive Statements Atrial fibrillation LVH with secondary repolarization abnormality Compared to ECG 09/27/2018 12:05:32 No significant changes Electronically Signed On 10-23-2018 9:49:34 PST by Faisal Denise MD CM:EKGRPT:ELECTROCARDIOGRAM REPORT 1224 0949 JELLY RICO DRAFT REPORT JELLY CARDENAS DO
[~2018-10-22 12:08] MED LIST: AMINOPHYLLIN200 MG PO; ASPIRIN325 M2 PO; DILTIAZEM HCL240 M1 PO; LOPRESSOR25 MG PO; PRINIVIL10 MG PO; VIBRAMYCIN100 MG PO; VITAMIN D32000 UNI1 PO; XARE20MG PO
[2018-10-22 12:50] LABS: BILIRUBIN NEGATIVE (NEGATIVE); BLOOD 3+ (NEGATIVE); CLARITY CLOUDY (CLEAR); COLOR RED (YELLOW); GLUCOSE NEGATIVE (NEGATIVE); KETONE NEGATIVE (NEGATIVE); LEUKO ESTERASE NEGATIVE (NEGATIVE); NITRITE NEGATIVE (NEGATIVE); PH 6.5 (5.0-9.0); SPECIFIC GRAVITY <= 1.005 (1.005-1.030); UROBILINOGEN 0.2 E.U./dl (0.2-1.0)
[2018-10-22 12:56] LABS: BASO % 0.3 % (0.0-1.0); EOS # 0.1 10*3/uL (0.0-0.4); EOS % 0.8 % (1.0-4.0); HEMATOCRIT 46.6 % (42.0-52.0); HEMOGLOBIN 16.5 g/dl (14.0-18.0); LYMPH # 1.1 10*3/uL (1.3-4.4); LYMPH % 14.1 % (27.0-41.0); MEAN CELL VOLUME 92.3 fl (80.0-94.0); MEAN CORPUSCULAR HGB 32.7 pg (27.0-31.0); MEAN CORPUSCULAR HGB CONC 35.4 g/dl (33.0-37.0); MEAN PLATELET VOLUME 9.9 fl (9.6-12.3); MONO # 0.5 10*3/uL (0.1-1.0); MONO % 6.6 % (3.0-9.0); NEUT # 5.8 10*3/uL (2.3-7.9); NEUT % 77.9 % (47.0-73.0); PLATELET COUNT AUTOMATED 197 10*3/uL (130-400); RED BLOOD COUNT 5.05 10*6/uL (4.50-5.90); RED CELL DISTRI WIDTH 12.2 % (0-14.5); WHITE BLOOD COUNT 7.5 10*3/uL (4.8-10.8)
[2018-10-22 13:05] LABS: ACT PARTIAL THROMBO TIME 35.9 SECONDS (20.8-31.5); INTERNATIONAL NORM RATIO 1.3 (2.0-3.5)
[2018-10-22 13:27] LABS: ALBUMIN 3.7 gm/dl (3.1-4.5); ALKALINE PHOSPHATASE 90 U/L (45-117); BUN 21 mg/dl (7-24); CHLORIDE 102 mmol/L (98-107); CREATININE 1.16 mg/dL (0.70-1.30); LIPASE 199 U/L (73-393); POTASSIUM 4.1 mmol/L (3.5-5.1); SGOT/AST 29 IU/L (3-35); SGPT/ALT 40 U/L (12-78); SODIUM 135 mmol/L (136-145); TROPONIN I < 0.015 ng/ml (<0.045)
[2018-10-22 13:48] LABS: RBC TNTC rbc/hpf (0-2)
== END 2018-10-22 14:15 | disposition home or self-care (01) ==
LOC: ED 12:08
PROVIDERS: Emergency Medicine
DX: R31.9 Hematuria, unspecified (principal); I10 Essential (primary) hypertension; I48.91 Unspecified atrial fibrillation; Z88.8 Allergy status to other drugs, medicaments and biological substances; Z79.82 Long term (current) use of aspirin; Z87.891 Personal history of nicotine dependence

== ENCOUNTER → 2018-10-27 | Outpatient (CLI) | payer OTHER ==
[2018-10-27 12:41] LABS: BILIRUBIN NEGATIVE (NEGATIVE); BLOOD TRACE-INTACT (NEGATIVE); CLARITY CLEAR (CLEAR); COLOR YELLOW (YELLOW); GLUCOSE NEGATIVE (NEGATIVE); KETONE TRACE (NEGATIVE); LEUKO ESTERASE NEGATIVE (NEGATIVE); NITRITE NEGATIVE (NEGATIVE); UROBILINOGEN 0.2 E.U./dl (0.2-1.0)
== END | disposition home or self-care (01) ==
LOC: RESCLI 04:28
PROVIDERS: Student in an Organized Health Care Education/Training Program
DX: I48.1 Persistent atrial fibrillation (principal); I10 Essential (primary) hypertension; R31.9 Hematuria, unspecified; E55.9 Vitamin D deficiency, unspecified; I16.1 Hypertensive emergency; F17.200 Nicotine dependence, unspecified, uncomplicated; Z79.899 Other long term (current) drug therapy; Z88.8 Allergy status to other drugs, medicaments and biological substances

== ENCOUNTER → 2019-01-19 | Outpatient (CLI) | payer OTHER | END | disposition home or self-care (01) | LOC: RESCLI 08:15 | DX: I10 Essential (primary) hypertension (principal); R91.1 Solitary pulmonary nodule; I48.1 Persistent atrial fibrillation; E55.9 Vitamin D deficiency, unspecified ==

== ENCOUNTER 2019-04-06 08:57 | Emergency (ER) | payer OTHER ==
[~2019-04-06] VITALS: Ht 172 cm; Wt 77.1 kg
--- NOTE | ~2019-04-06 | EKG ---
[place], [place] ELECTROCARDIOGRAM REPORT NAME: CASEY HENRIQUEZ UNIT #: [id number] ROOM: DOCTOR: EPIPHANY DRAFT REPORT BIRTHDATE: [birth year] [facility] Test Date: 2019-04-06 Test Time: 09:14:55 Pat Name: CASEY HENRIQUEZ Department: Room: Gender: Telephone Cleaner: Brianna Solorzano : 1955 Requested By: JELLY CARDENAS Order Number: [id number] Reading MD: Kelvin Bowers MD Measurements Intervals [place] Rate: 56 P: [place]: QRS: 61 QRSD: 93 T: -9 QT: 393 QTc: 380 Interpretive Statements Atrial fibrillation Ventricular premature contraction Electronically Signed On 04-06-2019 13:01:15 PDT by Kelvin Bowers MD CM:EKGRPT:ELECTROCARDIOGRAM REPORT 0914 1301 JELLY RICO DRAFT REPORT JELLY CARDENAS DO
[2019-04-06 09:23] LABS: BASO % 0.3 % (0.0-1.0); EOS # 0.1 10*3/uL (0.0-0.4); EOS % 1.7 % (1.0-4.0); HEMATOCRIT 48.1 % (42.0-52.0); HEMOGLOBIN 16.4 g/dl (14.0-18.0); LYMPH # 1.7 10*3/uL (1.3-4.4); LYMPH % 23.5 % (27.0-41.0); MEAN CELL VOLUME 96.4 fl (80.0-94.0); MEAN CORPUSCULAR HGB 32.9 pg (27.0-31.0); MEAN CORPUSCULAR HGB CONC 34.1 g/dl (33.0-37.0); MEAN PLATELET VOLUME 9.6 fl (9.6-12.3); MONO # 0.6 10*3/uL (0.1-1.0); MONO % 8.3 % (3.0-9.0); NEUT # 4.8 10*3/uL (2.3-7.9); NEUT % 66.1 % (47.0-73.0); PLATELET COUNT AUTOMATED 173 10*3/uL (130-400); RED BLOOD COUNT 4.99 10*6/uL (4.50-5.90); RED CELL DISTRI WIDTH 12.2 % (0-14.5); WHITE BLOOD COUNT 7.2 10*3/uL (4.8-10.8)
[2019-04-06 09:37] LABS: ACT PARTIAL THROMBO TIME 37.9 SECONDS (20.0-32.1); INTERNATIONAL NORM RATIO 1.2 (2.0-3.5)
[2019-04-06 09:40] LABS: ALBUMIN 3.9 gm/dl (3.1-4.5); ALKALINE PHOSPHATASE 64 U/L (45-117); BUN 26 mg/dl (7-24); CHLORIDE 106 mmol/L (98-107); CREATININE 1.15 mg/dL (0.70-1.30); LIPASE 186 U/L (73-393); POTASSIUM 4.6 mmol/L (3.5-5.1); SGOT/AST 28 IU/L (3-35); SGPT/ALT 33 U/L (12-78); SODIUM 140 mmol/L (136-145); TOTAL PROTEIN 7.7 gm/dL (6.4-8.2)
[2019-04-06 09:43] LABS: TROPONIN I < 0.015 ng/ml (<0.045)
== END 2019-04-06 10:15 | disposition home or self-care (01) ==
LOC: ED 08:57
PROVIDERS: Emergency Medicine
DX: I10 Essential (primary) hypertension (principal); Z87.891 Personal history of nicotine dependence; I48.91 Unspecified atrial fibrillation; Z88.8 Allergy status to other drugs, medicaments and biological substances; Z79.82 Long term (current) use of aspirin; Z79.2 Long term (current) use of antibiotics; Z79.899 Other long term (current) drug therapy

== ENCOUNTER → 2019-04-13 | Outpatient (CLI) | payer OTHER | END | disposition home or self-care (01) | LOC: RESCLI 00:57 | DX: I48.1 Persistent atrial fibrillation (principal); I10 Essential (primary) hypertension; R91.1 Solitary pulmonary nodule; E55.9 Vitamin D deficiency, unspecified; Z79.899 Other long term (current) drug therapy; Z88.8 Allergy status to other drugs, medicaments and biological substances ==

== ENCOUNTER → 2019-05-13 | Outpatient (CLI) | payer OTHER | END | disposition home or self-care (01) | LOC: CT 12:45 | DX: R91.1 Solitary pulmonary nodule (principal) ==

== ENCOUNTER → 2019-05-21 | Outpatient (CLI) | payer OTHER | END | disposition home or self-care (01) | LOC: RESCLI 00:36 | DX: I48.1 Persistent atrial fibrillation (principal); E55.9 Vitamin D deficiency, unspecified; I10 Essential (primary) hypertension; R91.1 Solitary pulmonary nodule; Z79.899 Other long term (current) drug therapy ==

== ENCOUNTER → 2019-06-23 | Outpatient (CLI) | payer OTHER | END | disposition home or self-care (01) | LOC: RESCLI 01:21 | DX: I48.91 Unspecified atrial fibrillation (principal); E55.9 Vitamin D deficiency, unspecified; I10 Essential (primary) hypertension; Z79.899 Other long term (current) drug therapy ==

== ENCOUNTER → 2019-08-31 | Outpatient (CLI) | payer OTHER | END | disposition home or self-care (01) | LOC: RESCLI 02:23 | DX: I48.11 Longstanding persistent atrial fibrillation (principal); E55.9 Vitamin D deficiency, unspecified; I10 Essential (primary) hypertension; Z88.8 Allergy status to other drugs, medicaments and biological substances ==

== ENCOUNTER → 2019-09-27 | Outpatient (CLI) | payer OTHER ==
[2019-09-27 10:50] LABS: ALBUMIN 3.7 gm/dl (3.1-4.5); ALKALINE PHOSPHATASE 51 U/L (45-117); BUN 29 mg/dl (7-24); CHLORIDE 106 mmol/L (98-107); CREATININE 1.35 mg/dL (0.70-1.30); POTASSIUM 3.7 mmol/L (3.5-5.1); SGOT/AST 19 IU/L (3-35); SGPT/ALT 37 U/L (12-78); SODIUM 140 mmol/L (136-145); TOTAL PROTEIN 7.5 gm/dL (6.4-8.2)
[2019-09-27 11:51] LABS: BILIRUBIN NEGATIVE (NEGATIVE); CLARITY CLEAR (CLEAR); COLOR YELLOW (YELLOW); GLUCOSE NEGATIVE (NEGATIVE); KETONE NEGATIVE (NEGATIVE)
[2019-09-27 11:52] LABS: BLOOD 2+ (NEGATIVE); EPITHELIAL CELLS 0-2; LEUKO ESTERASE NEGATIVE (NEGATIVE); NITRITE NEGATIVE (NEGATIVE); PH 7.5 (5.0-9.0); RBC 16-20 rbc/hpf (0-2); UROBILINOGEN 0.2 E.U./dl (0.2-1.0); WBC 0-2 wbc/hpf (0-5)
== END | disposition home or self-care (01) ==
LOC: LAB 09:29
PROVIDERS: Internal Medicine
DX: I10 Essential (primary) hypertension (principal)

== ENCOUNTER → 2019-09-29 | Outpatient (CLI) | payer OTHER ==
[2019-09-30 10:54] LABS: CREATININE,URINE 69.4 mg/dL (Not Estab.); MICROALBUMIN EXCRETION RATE 7.3 ug/min (0.0-20.0); MICROALBUMIN/CRT RATIO 9.1 (0.0-30.0)
== END | disposition home or self-care (01) ==
LOC: LAB 11:34
PROVIDERS: Internal Medicine
DX: I10 Essential (primary) hypertension (principal)

== ENCOUNTER → 2019-10-06 | Outpatient (CLI) | payer OTHER | END | disposition home or self-care (01) | LOC: RESCLI 00:24 | DX: I11.9 Hypertensive heart disease without heart failure (principal); I48.91 Unspecified atrial fibrillation; E55.9 Vitamin D deficiency, unspecified; Z79.899 Other long term (current) drug therapy; Z88.8 Allergy status to other drugs, medicaments and biological substances ==

== ENCOUNTER → 2019-10-11 | Outpatient (CLI) | payer OTHER ==
[2019-10-11 10:11] LABS: CREATININE 1.45 mg/dL (0.70-1.30); POTASSIUM 4.3 mmol/L (3.5-5.1)
== END | disposition home or self-care (01) ==
LOC: LAB 09:03
PROVIDERS: Internal Medicine
DX: I10 Essential (primary) hypertension (principal)

== ENCOUNTER → 2020-03-16 | Outpatient (CLI) | payer OTHER ==
[2020-03-16 11:44] LABS: BUN 28 mg/dl (7-24); CHLORIDE 108 mmol/L (98-107); CREATININE 1.23 mg/dL (0.70-1.30); POTASSIUM 4.1 mmol/L (3.5-5.1); SODIUM 140 mmol/L (136-145)
[2020-03-16 12:17] LABS: BILIRUBIN NEGATIVE (NEGATIVE); BLOOD 3+ (NEGATIVE); CLARITY CLEAR (CLEAR); COLOR YELLOW (YELLOW); GLUCOSE NEGATIVE (NEGATIVE); KETONE NEGATIVE (NEGATIVE); LEUKO ESTERASE NEGATIVE (NEGATIVE); NITRITE NEGATIVE (NEGATIVE); UROBILINOGEN 0.2 E.U./dl (0.2-1.0)
[2020-03-16 12:18] LABS: BACTERIA TRACE; RBC 16-20 rbc/hpf (0-2); WBC 0-2 wbc/hpf (0-5)
[2020-03-16 12:19] LABS: EPITHELIAL CELLS 0-2
== END | disposition home or self-care (01) ==
LOC: LAB 10:40
PROVIDERS: Internal Medicine
DX: I10 Essential (primary) hypertension (principal)

== ENCOUNTER → 2020-03-24 | Outpatient (CLI) | payer OTHER | END | disposition home or self-care (01) | LOC: US 02:02 | DX: I10 Essential (primary) hypertension (principal) ==

== ENCOUNTER → 2020-05-23 | Outpatient (CLI) | payer OTHER | END | disposition home or self-care (01) | LOC: RESCLI 06:06 | PROVIDERS: ATTEND Student in an Organized Health Care Education/Training Program | DX: I48.19 Other persistent atrial fibrillation (principal); I10 Essential (primary) hypertension; E55.9 Vitamin D deficiency, unspecified; I12.9 Hypertensive chronic kidney disease with stage 1 through stage 4 chronic kidney disease, or unspecified chronic kidney disease; N18.3 Chronic kidney disease, stage 3 (moderate); Z79.899 Other long term (current) drug therapy; Z88.8 Allergy status to other drugs, medicaments and biological substances ==

== ENCOUNTER → 2020-08-01 | Outpatient (CLI) | payer OTHER | END | disposition home or self-care (01) | LOC: RESCLI 07-31 00:44 | PROVIDERS: ATTEND Emergency Medicine | DX: I48.91 Unspecified atrial fibrillation (principal); I10 Essential (primary) hypertension; E55.9 Vitamin D deficiency, unspecified ==

== ENCOUNTER → 2020-11-14 | Outpatient (CLI) | payer OTHER | END | disposition home or self-care (01) | LOC: RESCLI 00:30 | PROVIDERS: ATTEND Internal Medicine | DX: I12.9 Hypertensive chronic kidney disease with stage 1 through stage 4 chronic kidney disease, or unspecified chronic kidney disease (principal); N18.30 Chronic kidney disease, stage 3 unspecified; E55.9 Vitamin D deficiency, unspecified; I48.19 Other persistent atrial fibrillation; Z88.8 Allergy status to other drugs, medicaments and biological substances; Z79.899 Other long term (current) drug therapy ==

== ENCOUNTER → 2022-10-25 | Outpatient (CLI) | payer MEDICARE ==
[2022-10-25 13:48] LABS: BASO % 0.2 % (0.0-1.0); EOS # 0.2 10*3/uL (0.0-0.4); EOS % 1.9 % (1.0-4.0); HEMATOCRIT 43.8 % (42.0-52.0); LYMPH # 2.1 10*3/uL (1.3-4.4); LYMPH % 25.9 % (27.0-41.0); MEAN CORPUSCULAR HGB 30.8 pg (27.0-31.0); MEAN CORPUSCULAR HGB CONC 33.1 g/dl (33.0-37.0); MEAN PLATELET VOLUME 9.9 fl (9.6-12.3); MONO # 0.7 10*3/uL (0.1-1.0); NEUT # 5.3 10*3/uL (2.3-7.9); NEUT % 63.8 % (47.0-73.0); PLATELET COUNT AUTOMATED 186 10*3/uL (130-400); RED BLOOD COUNT 4.71 10*6/uL (4.50-5.90); RED CELL DISTRI WIDTH 12.8 % (0-14.5); WHITE BLOOD COUNT 8.3 10*3/uL (4.8-10.8)
[2022-10-25 14:15] LABS: ALKALINE PHOSPHATASE 74 U/L (46-116); BUN 28 mg/dl (9-23); CHLORIDE 104 mmol/L (98-107); CHOLESTEROL 131 mg/dL (<200); FREE T4 1.24 ng/dl (0.89-1.76); LDL CHOLESTEROL 69 mg/dL (9-159); POTASSIUM 4.3 mmol/L (3.4-5.1); SGPT/ALT 20 U/L (10-49); THYROID STIM HORMONE (HS) 1.715 uIU/ml (0.550-4.780); TOTAL PROTEIN 7.3 gm/dL (6.0-8.0); TRIGLYCERIDES 70 mg/dl (<150)
[2022-10-25 14:25] LABS: VITAMIN D, 25-HYDROXY 31.2 ng/mL (30-100)
== END | disposition home or self-care (01) ==
LOC: LAB 12:38
PROVIDERS: ATTEND Internal Medicine
DX: E78.2 Mixed hyperlipidemia (principal); E55.9 Vitamin D deficiency, unspecified; I10 Essential (primary) hypertension; Z13.820 Encounter for screening for osteoporosis; Z13.0 Encounter for screening for diseases of the blood and blood-forming organs and certain disorders involving the immune mechanism; Z13.1 Encounter for screening for diabetes mellitus; Z13.6 Encounter for screening for cardiovascular disorders; Z13.220 Encounter for screening for lipoid disorders; Z13.21 Encounter for screening for nutritional disorder

== ENCOUNTER → 2023-04-24 | Outpatient (CLI) | payer MEDICARE ==
[2023-04-24 15:32] LABS: ALKALINE PHOSPHATASE 59 U/L (46-116); BUN 17 mg/dl (9-23); CHLORIDE 106 mmol/L (98-107); CHOLESTEROL 143 mg/dL (<200); LDL CHOLESTEROL 65 mg/dL (9-159); POTASSIUM 4.4 mmol/L (3.4-5.1); SGPT/ALT 13 U/L (10-49); TOTAL PROTEIN 7.2 gm/dL (6.0-8.0); TRIGLYCERIDES 152 mg/dl (<150)
== END | disposition home or self-care (01) ==
LOC: LAB 14:08
PROVIDERS: ATTEND Internal Medicine
DX: Z12.5 Encounter for screening for malignant neoplasm of prostate (principal); E78.2 Mixed hyperlipidemia